=== PATIENT | female | born 1980 | race Caucasian/White ===

== ENCOUNTER 2020-08-12 10:16 | Outpatient (CLI) | payer OTHER, SELFPAY ==
[2020-08-12 12:23] LABS: Hematocrit 39.1 % (37.0-47.0); Hemoglobin 12.4 g/dL (12.0-15.0)
[2020-08-12 12:31] LABS: Glucose 1 Hour PP 50gm Dose 199 mg/dL
[2020-08-12 15:08] LABS: HIV 1/2 Ab P24 Ag Result Negative (Negative)
[2020-08-12] MEDS: RHO(D) IMMUNE GLOBULIN 300 MCG/2 ML SYRINGE IM (16:05)
[2020-08-13 10:35] LABS: Rapid Plasma Reagin Non-Reactive (NonReactive)
[2020-08-16 13:06] LABS: Lead, Blood <1 mcg/dL (<5)
[2020-08-19 10:53] LABS: Collection Sample Venous
== END 2020-08-12 10:17 | disposition home or self-care (01) ==
LOC: ANHLAB 10:26
PROVIDERS: PCP Family Medicine; Visit Provider Obstetrics & Gynecology
DX: O36.0130 Maternal care for anti-D [Rh] antibodies, third trimester, not applicable or unspecified (principal); Z3A.00 Weeks of gestation of pregnancy not specified; Z36.89 Encounter for other specified antenatal screening
CPT/HCPCS: 36415; 82947; 83655; 85014; 85018; 85461; 86592; 86703; 90384; 96372; G0432; J2790

== ENCOUNTER 2020-09-16 09:50 | Outpatient (RCR) | payer OTHER, SELFPAY ==
[2020-09-16 10:32] VITALS: BP 123/67; PULSE 72
== END 2020-10-14 08:14 | disposition home or self-care (01) ==
LOC: ANHOBOP 09:50
PROVIDERS: PCP Family Medicine; Visit Provider Obstetrics & Gynecology
DX: O24.419 Gestational diabetes mellitus in pregnancy, unspecified control (principal); Z3A.33 33 weeks gestation of pregnancy
CPT/HCPCS: 59025

== ENCOUNTER 2020-10-11 00:01 | Inpatient (IN) | payer OTHER, SELFPAY ==
--- NOTE | 2020-10-10 23:56 | LDADM ---
This patient, Laureen Medellin, was admitted to Labor/Delivery/Recovery 107 on 10/10/20 at 23:56. Plans for labor, pain management and were discussed with patient. Patient/family oriented to hospital policies and general routines including ID bracelet, bed and alarms, visiting hours, pain management, procedures, bathroom and other care routines, personal items, smoking policy, room service/diet and guest tray routines, security routines, and visiting hours. Patient/Family are encouraged to report perceived risks to care and to ask questions if they do not understand what they are told or what they should do. See OBIX for further documentation.
[2020-10-11] VITALS (42 sets, daily range): BP systolic 120–142; BP diastolic 62–87; PULSE 50–76; RESP 18–20; TEMP 36.1–37.1; BMI 39.2
[2020-10-11 00:49] LABS: Basophils Absolute Auto 0.1 K/mm3 (0.0-0.1); Basophils Percent Auto 0.4 % (0.2-1.2); Eosinophils Absolute Auto 0.1 K/mm3 (0-0.3); Eosinophils Percent Auto 0.5 % (0-4.4); Hematocrit 39.4 % (37.0-47.0); Immature Granulocyte Absolute 0.08 K/mm3 (0.00-0.031); Immature Granulocyte Percent A 0.6 % (0-0.5); Lymphocytes Absolute Auto 2.64 K/mm3 (0.9-3.2); Lymphocytes Percent Auto 20.5 % (18.3-44.2); Mean Corpuscular Hemoglobin 27.6 pg (26-34); Mean Corpuscular Volume 83.7 fl (80-100); Mean Platelet Volume 12.1 fl (7.4-10.4); Monocytes Absolute Auto 0.7 K/mm3 (0.1-0.6); Monocytes Percent Auto 5.4 % (2.6-8.5); Neutrophils Absolute Auto 9.3 K/mm3 (1.3-6.7); Neutrophils Percent Auto 72.6 % (45.5-73.1); Platelet Count Result 172 k/mm3 (150-375); Red Blood Count 4.71 M/mm3 (4.2-5.4); Red Cell Distribution Width 13.9 % (11.5-14.5); White Blood Count 12.9 K/mm3 (4.5-10.0)
[2020-10-11 00:58] LABS: Uric Acid 5.9 mg/dL (2.5-7.5)
[2020-10-11 01:02] LABS: Alanine Aminotransferase 12 U/L (4-35); Albumin Level 3.2 g/dL (3.5-5.1); Alkaline Phosphatase 152 U/L (38-126); Anion Gap 5 mmol/L (8-16); Aspartate Amino Transferase 18 U/L (14-36); Bilirubin,Total 0.1 mg/dL (0.2-1.3); Blood Urea Nitrogen 12 mg/dL (7-17); Calcium 9.1 mg/dL (8.4-10.2); Carbon Dioxide 22 mmol/L (22-30); Chloride 109 mmol/L (98-107); Estimated Glomerular Filt Rate > 60; Glucose 78 mg/dL (65-105); Potassium 3.9 mmol/L (3.4-5.0); Sodium 136 mmol/L (137-145)
[2020-10-11] MEDS: DINOPROSTONE 10 MG VAG INSERT VAGINAL (01:11)
--- NOTE | 2020-10-11 07:46 | WPDOBADMIT ---
Obstetrics - Admit Note Admission Note: record reviewed. No pertinent additions to the history and/or any subsequent changes in the physical findings that are not consistent with the expected course of the were found. Additions to the history and/or subsequent changes in the physical findings follow. Briefly 40yo G1 at 37 weeks with PIH, GDM, AMA. Cervix unfavorable. Cervidil in. Discussed POC. FHT category 1.
[2020-10-11 08:37] LABS: Glucose Point of Care 84 mg/dl (65-105)
[2020-10-11 09:27] LABS: Rapid Plasma Reagin Non-Reactive (NonReactive)
[2020-10-11 12:28] LABS: Glucose Point of Care 75 mg/dl (65-105)
[2020-10-11] MEDS: LACTATED RINGERS 1,000 ML 125 ML IV CONT ×2 (18:05→23:45)
[2020-10-11] MEDS: OXYTOCIN 30 UNITS/NS 500 ML 30 UNITS/500 ML BAG 6 UNITS IV CONT (18:06)
[2020-10-11 18:11] LABS: Glucose Point of Care 91 mg/dl (65-105)
--- NOTE | 2020-10-11 20:40 | WPDANESEPPF ---
Anes - Initial Pre Proc Eval Procedure: labor epidural Date/Time: 10/11/20 20:40 Surgeon: Esperanza Quinones MD Pre Op Diagnosis: labor pain Pre Op Diagnosis: IOL Patient Data Age: 40 Gender: F Height: 1.68 m Weight: 110.4 kg Last Vital Signs Temp 36.6 C 10/11/20 17:53 Pulse 62 10/11/20 20:31 Resp 18 10/11/20 17:53 BP 132/78 10/11/20 20:31 Allergies Allergy/AdvReac Type Severity Reaction Status Date / Time amoxicillin Allergy Intermediate Rash Verified 08/12/20 16:02 Home Medications Medication Instructions Recorded Confirmed Type PNV cmb#95-ferrous fumarate-FA 1 tablet PO DAILY 09/16/20 10/11/20 History [] Laboratory Tests 10/11/20 10/11/20 10/11/20 00:42 00:42 00:42 WBC 12.9 K/mm3 H K/mm3 (4.5-10.0) RBC 4.71 M/mm3 M/mm3 (4.2-5.4) Hgb 13.0 g/dL g/dL (12.0-15.0) Hct 39.4 % % (37.0-47.0) MCV 83.7 fl fl (80-100) MCH 27.6 pg pg (26-34) MCHC 33.0 g/dl g/dl (32-36) RDW 13.9 % % (11.5-14.5) Plt Count 172 k/mm3 k/mm3 (150-375) MPV 12.1 fl H fl (7.4-10.4) Immature Gran % (Auto) 0.6 % H % (0-0.5) Neut % (Auto) 72.6 % % (45.5-73.1) Lymph % (Auto) 20.5 % % (18.3-44.2) Walker % (Auto) 5.4 % % (2.6-8.5) Eos % (Auto) 0.5 % % (0-4.4) Baso % (Auto) 0.4 % % (0.2-1.2) Lymph # (Auto) 2.64 K/mm3 K/mm3 (0.9-3.2) Walker # (Auto) 0.7 K/mm3 H K/mm3 (0.1-0.6) Eos # (Auto) 0.1 K/mm3 K/mm3 (0-0.3) Baso # (Auto) 0.1 K/mm3 K/mm3 (0.0-0.1) Abs Immat Gran (auto) 0.08 K/mm3 H K/mm3 (0.00-0.031) Absolute Neuts (auto) 9.3 K/mm3 H K/mm3 (1.3-6.7) Absolute Nucleated RBC 0.0 K/mm3 K/mm3 (0.0-0.012) Nucleated RBC % 0.0 % % (0.0-0.2) Sodium Potassium Chloride Carbon Dioxide Anion Gap BUN Creatinine Estim Creat Clear Calc Estimated GFR Glucose POC Capillary Glucose Uric Acid 5.9 mg/dL mg/dL (2.5-7.5) Calcium Total Bilirubin AST ALT Alkaline Phosphatase Total Protein Albumin RPR Non-reactive (NonReactive) Blood Type Antibody Screen Antibody Identification Antigen Identification ABDIAZIZ, IgG Interpret ABDIAZIZ, Poly Interpret ABDIAZIZ, Complement Interp 10/11/20 10/11/20 10/11/20 00:42 00:42 08:34 WBC RBC Hgb Hct MCV MCH MCHC RDW Plt Count MPV Immature Gran % (Auto) Neut % (Auto) Lymph % (Auto) Walker % (Auto) Eos % (Auto) Baso % (Auto) Lymph # (Auto) Walker # (Auto) Eos # (Auto) Baso # (Auto) Abs Immat Gran (auto) Absolute Neuts (auto) Absolute Nucleated RBC Nucleated RBC % Sodium 136 mmol/L L mmol/L (137-145) Potassium 3.9 mmol/L mmol/L (3.4-5.0) Chloride 109 mmol/L H mmol/L (98-107) Carbon Dioxide 22 mmol/L mmol/L (22-30) Anion Gap 5 mmol/L L mmol/L (8-16) BUN 12 mg/dL mg/dL (7-17) Creatinine 0.60 mg/dL L mg/dL (0.7-1.0) Estim Creat Clear Calc Not Reportable Estimated GFR > 60 (59 - ) Glucose 78 mg/dL mg/dL (65-105) POC Capillary Glucose 84 mg/dl mg/dl (65-105) Uric Acid Calcium 9.1 mg/dL mg/dL (8.4-10.2) Total Bilirubin 0.1 mg/dL L mg/dL (0.2-1.3) AST 18 U/L
[2020-10-11 22:34] LABS: Glucose Point of Care 76 mg/dl (65-105)
[2020-10-12] VITALS (130 sets, daily range): BP systolic 84–148; BP diastolic 39–87; PULSE 46–112; RESP 12–19; TEMP 36.1–36.6; O2SAT 86–100
[2020-10-12 02:28] LABS: Glucose Point of Care 77 mg/dl (65-105)
[2020-10-12] MEDS: LACTATED RINGERS 1,000 ML 125 ML IV CONT ×3 (06:11→15:48)
[2020-10-12 06:24] LABS: Glucose Point of Care 83 mg/dl (65-105)
[2020-10-12] MEDS: ONDANSETRON INJ 4 MG/2 ML VIAL IV PUSH ×3 (07:30→20:40)
[2020-10-12] MEDS: fentaNYL CITRATE INJ (*CRX) 100 MCG/2 ML VIAL 50 MCG IV PUSH ×2 (07:41→10:38)
[2020-10-12 10:34] LABS: Glucose Point of Care 86 mg/dl (65-105)
[2020-10-12 14:00] LABS: Glucose Point of Care 81 mg/dl (65-105)
--- NOTE | 2020-10-12 15:53 | WPDHPUPDATE1 ---
History and Physical Update Update Date/Time: 10/12/20 15:53 History and Physical has been reviewed, including an updated exam of the patient. SHe is 3-4 cm and contractions very inadequate. Unable to increase pitocin to get contractions adequate, as baby has had late decelerations several times and one prolonged decel to 80s. Given that she is remote from delivery, I recommend we proceed with section. Risks, benefits, and alternatives have been discussed and questions answered. Patient agrees to proceed with procedure.
--- NOTE | 2020-10-12 17:13 | PM.OBPRVD ---
OB - Delivery Note Procedure Delivery date: 10/12/20 Procedure: Procedures Operation Date: 10/12/20 16:00 <No data on this case meets the specified criteria> Primary low transverse section events: Gestational Diabetes and Induced HTN Intrapartal events: Prolonged Latent Phase, Intolerance and Failure to Progress in Labor Induction method: AROM, per pitocin protocol and per cervidil protocol Route of delivery: Specimen: No Quantitative Blood Loss (ml): 740 Anesthesia type: Epidural Disposition: floor Complications: none Narrative: The patient was taken to the OR and received spinal anesthesia. She was placed in dorsal supine position with left lateral tilt. SCDs and avery were placed. She was prepped and draped in the normal sterile fashion. A Pfannensteil skin incision was made and carried through to the underlying layer of fascia. The fascia was incised in the midline and then extended laterally using Valencia scissors. The muscles were in the midline and the peritoneum was entered bluntly. The peritoneal incision was extended inferiorly and superiorly with care to avoid the bladder. The bladder blade was then inserted, the vesicouterine peritoneum was grasped, incised with Metzenbaum scissors, and a bladder flap created. The bladder blade was reinserted. A low transverse uterine incision was made with a scalpel and extended bluntly. AROM was performed and fluid was noted to be clear. The head was delivered, followed by the remainder of the baby. The baby's oropharynx was suctioned. After 30 seconds, the cord was clamped and cut and the was handed off. Cord blood was obtained and the placenta was then removed manually. The uterus was exteriorized. A moist lap sponge was used to curette the endometrium. The uterine incision was then closed with one layer of 0-Vicryl in a running, locking fashion. Good hemostasis was noted. The posterior cul de sac was irrigated with normal saline and cleared of all clot and debris. The uterus was returned to the abdomen. Both lateral gutters were then irrigated. The rectus muscles were inspected and found to be hemostatic. The fascia was reapproximated using 0-Vicryl in running fashion. The subcutaneous tissue was irrigated with normal saline and made hemostatic with Bovie electrocautery. The subcutaneous tissue was reapproximated with a layer of running 2-0 plain gut. The skin was then closed with absorbable sutures and skin glue. The uterus was evacuated. She received hemabate, extra pitocin, and cytotec for uterine atony. The patient tolerated the procedure very well. All counts were correct. She was taken to the recovery room in good condition. Baby Date of : 10/12/20 Time of : 16:29 Weeks of gestation at delivery: 37 gender: Male Weight (pounds): 6 Weight (ounces): 8 presentation: vertex Placenta delivery description: Manual Removal cord vessel description: 3 Vessels, Nuchal Cord and Delayed Cord Clamping score one minute: 7 score five minutes: 8
[2020-10-12] MEDS: OXYTOCIN 30 UNITS/NS 500 ML 30 UNITS/500 ML BAG 125 UNITS IV CONT (19:39)
[2020-10-12] MEDS: KETOROLAC 30 MG/ML VIAL (*BKC) IV PUSH (20:40)
[2020-10-12] MEDS: diphenhydrAMINE HCl INJ 50 MG/ML VIAL 25 MG IV PUSH (20:40)
[2020-10-12] MEDS: DEXTROSE 5%/0.45% SOD CHL 1,000 ML 125 ML IV CONT (23:10)
[2020-10-13 04:45] VITALS: BP 130/64; PULSE 76; RESP 15; TEMP 36.6; O2SAT 99
[2020-10-13] MEDS: KETOROLAC 30 MG/ML VIAL (*BKC) IV PUSH (05:07)
[2020-10-13] MEDS: HYDROcodone/acetaminophen (*CRX) 5-325 MG TABLET 1 TAB PO ×4 (05:08→21:21)
[2020-10-13 05:54] LABS: Basophils Percent Auto 0.2 % (0.2-1.2); Hematocrit 34.9 % (37.0-47.0); Hemoglobin 11.4 g/dL (12.0-15.0); Immature Granulocyte Absolute 0.09 K/mm3 (0.00-0.031); Immature Granulocyte Percent A 0.7 % (0-0.5); Immature Platelet Fraction Pct 11.5 % (0.9-11.2); Lymphocytes Percent Auto 11.3 % (18.3-44.2); Mean Corpuscular HGB Conc 32.7 g/dl (32-36); Mean Corpuscular Hemoglobin 27.9 pg (26-34); Mean Corpuscular Volume 85.3 fl (80-100); Mean Platelet Volume 12.8 fl (7.4-10.4); Monocytes Absolute Auto 0.7 K/mm3 (0.1-0.6); Monocytes Percent Auto 5.4 % (2.6-8.5); Neutrophils Percent Auto 82.4 % (45.5-73.1); Platelet Count Result 149 k/mm3 (150-375); Red Blood Count 4.09 M/mm3 (4.2-5.4); Red Cell Distribution Width 13.9 % (11.5-14.5); White Blood Count 13.3 K/mm3 (4.5-10.0)
[2020-10-13] MEDS: POLYSACCHARIDE IRON COMPLEX 150 MG CAPSULE PO (08:59)
[2020-10-13] MEDS: MULTIVIT/MIN/PREN/FOL AC/IRON TABLET 1 TAB PO (08:59)
[2020-10-13] MEDS: DOCUSATE SODIUM 100 MG CAPSULE PO ×2 (08:59→16:42)
[2020-10-13 09:00] VITALS: BP 126/74; PULSE 60; RESP 18; TEMP 36.6
--- NOTE | 2020-10-13 09:18 | WPDANLDPN2 ---
Anes-Prog Note L&D Date/Time: 10/13/20 09:18 Comfortable throughout: labor and delivery Neuraxial method: epidural Epidural/Spinal procedure site: clean & non-tender Neuro status: Neuro function grossly intact. Cardiovascular status: normal Respiratory status: normal Airway patency: baseline Mental status: baseline Post-Op hydration status: normal Vital Signs: Last Vital Signs Temp 36.6 C 10/13/20 04:45 Pulse 76 10/13/20 04:45 Resp 15 10/13/20 04:45 BP 130/64 10/13/20 04:45 Pulse Ox 99 10/13/20 04:45 Pain score (VAS): 0/10 I/O: Intake & Output 10/12/20 10/13/20 10/13/20 23:59 07:59 15:59 Intake Total 700 650 Output Total 548 1200 Balance 152 -550 Post-procedural complaints: none Patient feedback: Patient satisfied with anesthetic care.
[2020-10-13] MEDS: IBUPROFEN 600 MG TABLET PO ×2 (10:34→16:42)
--- NOTE | 2020-10-13 11:09 | PM.OBPNVD ---
OB - PN: Subj Subjective Date/time seen: 10/13/20 11:09 Patient comments: no complaints baby status: NICU [place] feeding status: pumping and storing Narrative: POD 1 from primary CS. Doing well. Normal lochia. Eating, ambulating, avery out. OB - PN: Obj Data Labs CBC & Chem 7: 10/13/20 05:00 10/11/20 00:42 Labs: Laboratory Results - last 24 hr 10/12/20 10/13/20 10/13/20 13:53 05:00 05:00 WBC 13.3 H RBC 4.09 L Hgb 11.4 L Hct 34.9 L MCV 85.3 MCH 27.9 MCHC 32.7 RDW 13.9 Plt Count 149 L MPV 12.8 H Immature Gran % (Auto) 0.7 H Neut % (Auto) 82.4 H Lymph % (Auto) 11.3 L [place] % (Auto) 5.4 Eos % (Auto) 0.0 Baso % (Auto) 0.2 Lymph # (Auto) 1.50 [place] # (Auto) 0.7 H Eos # (Auto) 0.0 Baso # (Auto) 0.0 Abs Immat Gran (auto) 0.09 H Absolute Neuts (auto) 11.0 H Absolute Nucleated RBC 0.0 Nucleated RBC % 0.0 % Immature Plt Fraction 11.5 H POC Capillary Glucose 81 Blood Type O Negative Antibody Screen TNP Screen Negative Baby's Blood Type O pos Baby's ABDIAZIZ Negative Doses of RhIg Required 1 OB - PN A/P Plan day: 1 Plan: routine care Comments: Routine post op care. circ done after consented. Time Spent With Patient Time: Total time spent is greater than 50% in coordination of care (as documented) at patient's floor/unit and/or counseling patient: Exam Narrative: Exam Narrative: NAD abdomen soft, appropriately tender, incision bandaged Extremities nontender with 1+ edema UOP 1200cc/10 hours
[2020-10-13 13:00] VITALS: BP 122/72; PULSE 71; RESP 18; TEMP 36.9
[2020-10-13] MEDS: RHO(D) IMMUNE GLOBULIN 300 MCG/2 ML SYRINGE IM (16:38)
[2020-10-13 19:55] VITALS: BP 133/63; PULSE 60; RESP 16; TEMP 36.8; O2SAT 100
[2020-10-13 23:00] VITALS: BP 127/67; PULSE 78; RESP 16; TEMP 37; O2SAT 100
[2020-10-14] MEDS: HYDROcodone/acetaminophen (*CRX) 5-325 MG TABLET 1 TAB PO ×8 (01:50→23:54)
[2020-10-14] MEDS: IBUPROFEN 600 MG TABLET PO ×4 (01:50→20:42)
[2020-10-14 03:25] VITALS: BP 123/64; PULSE 68; RESP 16; TEMP 36.9; O2SAT 97
[2020-10-14 07:35] VITALS: BP 134/82; PULSE 74; RESP 16; TEMP 37.1; O2SAT 98
--- NOTE | 2020-10-14 07:52 | PM.OBPNVD ---
OB - PN: Subj Subjective Date/time seen: 10/14/20 07:52 Patient comments: no complaints, incisional pain and tolerating diet [place] baby status: doing well and nursing well [place] feeding status: exclusively breast feeding OB - PN: Obj Data Labs CBC & Chem 7: 10/13/20 05:00 10/11/20 00:42 Labs: Laboratory Results - last 24 hr 10/13/20 05:00 Blood Type O Negative Antibody Screen TNP Screen Negative Baby's Blood Type O pos Baby's ABDIAZIZ Negative Doses of RhIg Required 1 OB - PN A/P Plan day: 2 Plan: routine care Comments: Home POD 3 or 4 DC instructions discussed Time Spent With Patient Time: Total time spent is greater than 50% in coordination of care (as documented) at patient's floor/unit and/or counseling patient: Exam Narrative: Exam Narrative: NAD abdomen soft, appropriately tender, incision CDI Extremities nontender with 1+ edema
[2020-10-14] MEDS: DOCUSATE SODIUM 100 MG CAPSULE PO ×2 (08:02→17:42)
[2020-10-14] MEDS: MULTIVIT/MIN/PREN/FOL AC/IRON TABLET 1 TAB PO (08:02)
[2020-10-14 08:30] VITALS: PULSE 68; RESP 16; O2SAT 97
[2020-10-14 11:58] VITALS: BP 133/84; PULSE 68; RESP 16; TEMP 37.1; O2SAT 99
[2020-10-14] MEDS: SIMETHICONE 80 MG TAB.CHEW PO (14:04)
[2020-10-14 20:30] VITALS: BP 145/83; PULSE 70; RESP 16; TEMP 36.6; O2SAT 99
[2020-10-14 23:55] VITALS: BP 150/85; PULSE 60; RESP 18; TEMP 36.1
[2020-10-15] VITALS (11 sets, daily range): BP systolic 122–151; BP diastolic 71–85; PULSE 60–78; RESP 14–20; TEMP 36.2–37; O2SAT 99
[2020-10-15] MEDS: HYDROcodone/acetaminophen (*CRX) 5-325 MG TABLET 1 TAB PO ×2 (02:51→05:51)
[2020-10-15] MEDS: IBUPROFEN 600 MG TABLET PO ×4 (02:52→21:17)
[2020-10-15] MEDS: SIMETHICONE 80 MG TAB.CHEW PO ×4 (03:10→17:53)
--- NOTE | 2020-10-15 07:48 | P.PNOB_ITS ---
OB - PN: Subj Subjective Date/time seen: 10/15/20 07:48 Patient comments: pain well controlled, tolerating diet and flatus present baby status: bottle feeding well [place] feeding status: pumping and bottle feeding Narrative: Nausea overnight and today. Encouraged scheduled scheduled simethicone, ambulation in halls, suppository. zofran prn, but caution re constipation. BPs mildly elevated. Denies HALL/EP/BV OB - PN: Obj Data Labs CBC & Chem 7: 10/13/20 05:00 10/11/20 00:42 OB - PN A/P Plan day: 3 Comments: BPs 133-150/77-85, will start labetalol 100 BID PIH labs ambulate, simethicone, suppository. Hopefully home tomorrow. Time Spent With Patient Time: Total time spent is greater than 50% in coordination of care (as documented) at patient's floor/unit and/or counseling patient: Exam Narrative: Exam Narrative: NAD abdomen soft, appropriately tender, incision CDI Extremities nontender with 1+ edema
[2020-10-15] MEDS: BISACODYL 10 MG SUPPOSITORY RECTAL (09:10)
[2020-10-15] MEDS: LABETALOL HCL 100 MG TABLET PO ×2 (09:12→21:21)
[2020-10-15] MEDS: DOCUSATE SODIUM 100 MG CAPSULE PO ×2 (09:13→17:53)
[2020-10-15] MEDS: MULTIVIT/MIN/PREN/FOL AC/IRON TABLET 1 TAB PO (09:13)
[2020-10-15] MEDS: HYDROcodone/acetaminophen (*CRX) 10-325 MG TABLET 1 TAB PO ×2 (15:01→21:17)
[2020-10-16 04:30] VITALS: BP 139/75; PULSE 72; RESP 18
[2020-10-16] MEDS: HYDROcodone/acetaminophen (*CRX) 10-325 MG TABLET 1 TAB PO ×2 (04:39→10:50)
[2020-10-16] MEDS: IBUPROFEN 600 MG TABLET PO ×2 (04:39→10:49)
[2020-10-16 07:50] VITALS: BP 147/80; PULSE 74; RESP 18; TEMP 37; O2SAT 100
--- NOTE | 2020-10-16 07:58 | PM.OBPNVD ---
OB - PN: Subj Subjective Date/time seen: 10/16/20 07:58 Patient comments: no complaints and pain well controlled baby status: doing well [place] feeding status: breast and bottle feeding Narrative: Bps on labetalol 120s-130s/70s/80s Denies HALL/BV/EP OB - PN: Obj Data Labs CBC & Chem 7: 10/13/20 05:00 10/11/20 00:42 Labs: Laboratory Results - last 24 hr 10/13/20 05:00 Blood Type O Negative Antibody Screen TNP Screen Negative Baby's Blood Type O pos Baby's ABDIAZIZ Negative Doses of RhIg Required 1 OB - PN A/P Plan day: 4 Plan: routine care and discharge home Comments: FU BP check hospital tomorrow and with me in 5 days Time Spent With Patient Time: Total time spent is greater than 50% in coordination of care (as documented) at patient's floor/unit and/or counseling patient: Time with patient: less than 15 minutes Exam Narrative: Exam Narrative: NAD abdomen soft, appropriately tender, incision CDI Extremities nontender with 1+ edema
--- NOTE | 2020-10-16 08:05 | PM.OBDSVD ---
DS: Admitting Diagnosis Admitting Diagnosis Admitting Diagnosis: term , PIH DS: Discharge Diagnosis Discharge Diagnosis (1) delivery delivered: Code(s): O82 - Encounter for delivery without indication Status: Acute OB - DS: Summary Hospital Course Hospital Course: Pt was admitted for induction due to PIH. At 3-4cm we were unable to increase pitocin due to intolerance of labor and CS was performed. course was uncomplicated except for BPs increasing on day 3. Labetalol was started and they improved. She was DCed home on POD4. OB Procedures : NST, PIH Mgmt and Ultrasound OB Procedures Intrapartum: OB Procedures: : None Peripartum Data Infant Delivery Method: Section Procedures: Procedures Operation Date: 10/12/20 16:00 Actual Procedure Side Surgeon p Section Esperanza Quinones MD Status at Discharge Functional status at discharge: independent ambulation Time Spent with Patient Time attestation: Total time spent providing and/or coordinating discharge services: Exam Narrative: Exam Narrative: NAD abdomen soft, appropriately tender, incision CDI DS: Data Data Completed and Pending Pending studies at discharge: Pending at discharge 10/12/20 16:29 Surgical [PTH] Routine Labs on day of discharge: Labs from last 24 hours 10/13/20 05:00 Blood Type O Negative Antibody Screen TNP Screen Negative Baby's Blood Type O pos Baby's ABDIAZIZ Negative Doses of RhIg Required 1 Discharge Plan Discharge Attending physician on discharge: Esperanza Quinones Discharging Clinician: Esperanza Quinones Anticipated Discharge Date/Time: 10/16/20 12:00 Patient Disposition: Home, Self-Care Activity: may shower, no straining, may drive after 2 weeks and pelvic rest Diet: as tolerated Patient Instructions: Antibiotic Form Stand Alone Forms: General Discharge Information Follow-up/Referrals: Esperanza Quinones MD [Physician] - 1 Week Discharge Medications: New hydrocodone-acetaminophen 5-325 mg Tablet 1 tablet PO Q4-5H PRN (Reason: Moderate Pain (4-6)) Qty: 30 RF: 0 ibuprofen 600 mg Tablet 600 mg PO Q6H PRN (Reason: Cramping) Qty: 60 RF: 1 labetalol 100 mg Tablet 100 mg PO Q12HR Qty: 60 RF: 1 Continued PNV cmb#95-ferrous fumarate-FA [] 28 mg iron- 800 mcg Tablet 1 tablet PO DAILY RF: 0 Date of admission: 10/11/20 00:01 Primary Care Provider: Augusta Mayberry Admitting Provider: Esperanza Quinones Attending physician on admission: Esperanza Quinones Condition: Stable
[2020-10-16 09:41] VITALS: PULSE 74
[2020-10-16] MEDS: MULTIVIT/MIN/PREN/FOL AC/IRON TABLET 1 TAB PO (09:41)
[2020-10-16] MEDS: DOCUSATE SODIUM 100 MG CAPSULE PO (09:41)
[2020-10-16] MEDS: LABETALOL HCL 100 MG TABLET PO (09:41)
[2020-10-17 09:17] VITALS: BP 138/66; PULSE 63; RESP 20; TEMP 37.2; O2SAT 100
--- NOTE | 2020-10-18 13:07 | PM.IMHP ---
H&P: HPI History of Present Illness Date/Time: 10/18/20 13:07 Chief Complaint: IOL Narrative: IOL for PIH. SHe is 3-4 cm and contractions very inadequate. Unable to increase pitocin to get contractions adequate, as baby has had late decelerations several times and one prolonged decel to 80s. Given that she is remote from delivery, I recommend we proceed with section. Review of Systems Review of Systems: All systems reviewed & are unremarkable except as noted in HPI and below PMFSH Past Medical History Medical History (Updated 10/16/20 @ 09:06 by Augusta Mayberry MD) GDM (gestational diabetes mellitus) PIH ( induced hypertension) Family History Family History Other No pertinent family history Social History Social History Smoking status: Never smoker Substance use: never Gender identity (if verbalized by the patient): Female Spiritual care concerns: No Meds Home Medications and Allergies Home Medications Medication Instructions Recorded Confirmed Type PNV cmb#95-ferrous fumarate-FA 1 tablet PO DAILY 09/16/20 10/11/20 History [] hydrocodone-acetaminophen 1 tablet PO Q4-5H PRN #30 tablet 10/16/20 Rx ibuprofen 600 mg PO Q6H PRN #60 tablet 10/16/20 Rx labetalol 100 mg PO Q12HR #60 tablet 10/16/20 Rx Allergies Allergy/AdvReac Type Severity Reaction Status Date / Time amoxicillin Allergy Intermediate Rash Verified 08/12/20 16:02 Exam Const: General: no acute distress Resp: Effort & Inspection: normal respiratory effort Auscultation: clear to auscultation bilaterally Cardio: Rate: regular rate Rhythm: regular rhythm GI: GI Palp: Yes Soft to palpation Extrem: General: normal to inspection Assessment and Plan Additional Plan Plan primary CS Discussed RBA, pt consented, all questions answered. will proceed.
== END 2020-10-16 12:40 | disposition home or self-care (01) | DRG 788 ==
LOC: ANHLDR 04:09 → ANHOB2 10-12 20:14
PROVIDERS: Admitting Provider Obstetrics & Gynecology; PCP Family Medicine; Visit Provider Obstetrics & Gynecology
PROC: 10D00Z1 Extraction of Products of Conception, Low, Open Approach (ICD-10-PCS; CPT 59514; principal; 2020-10-12 16:00)
DX: O24.429 Gestational diabetes mellitus in childbirth, unspecified control (principal); Z37.0 Single live birth; Z3A.37 37 weeks gestation of pregnancy; O13.4 Gestational [pregnancy-induced] hypertension without significant proteinuria, complicating childbirth; O69.81X0 Labor and delivery complicated by cord around neck, without compression, not applicable or unspecified; O63.0 Prolonged first stage (of labor); O99.214 Obesity complicating childbirth; E66.9 Obesity, unspecified; O36.8330 Maternal care for abnormalities of the fetal heart rate or rhythm, third trimester, not applicable or unspecified
CPT/HCPCS: 36415; 80053; 82948; 84550; 85025; 85055; 85461; 86592; 86850; 86880; 86900; 86901; 86902; 88307; 90384; A9270; J0131; J1200; J1885; J2274; J2405; J2590; J2790; J2795; J3010; J7120

== ENCOUNTER → 2021-01-09 16:47 | Outpatient (CLI) | payer OTHER, SELFPAY ==
--- NOTE | ~2021-01-09 | XR_ITS ---
XR hip LT 2V w AP pelvis 01/09/2021 17:04 Indication: Left hip pain Procedure: AP pelvis and 2 views left hip Comparison: No prior studies for comparison. Findings: No fracture, subluxation or dislocation. Pelvic rings are intact. There is mild osteitis pu bis. No significant joint space narrowing. There is anatomic alignment. No significant soft tissue ab normality. Impression: 1: No significant bone or joint abnormality. Reviewed, dictated and finalized at location A. Impression: 1: No significant bone or joint abnormality.
== END ==
PROVIDERS: Visit Provider Physician Assistant
DX: M25.552 Pain in left hip (principal); M86.9 Osteomyelitis, unspecified
CPT/HCPCS: 73502

== ENCOUNTER 2021-07-28 08:25 | Emergency (ER) | payer OTHER, SELFPAY ==
--- NOTE | ~2021-07-28 | XR_ITS ---
EXAMINATION: XR hand RT min 3V EXAM DATE: 07/28/2021 08:43 INDICATION: KNI. Pain X 3 Days. Attn: 1st Mp Jt. TECHNIQUE: Right hand frontal, lateral and oblique projections obtained and reviewed. There is no pr ior study for comparison. FINDINGS: Right metacarpal bones are unremarkable. There are no bony erosions identified. There are no acute fractures or dislocations identified. There is no subcutaneous gas. The soft tissue is un remarkable. There are no radiopaque foreign bodies. The joint spaces are uniform. IMPRESSION: Unremarkable XR hand RT min 3V exam. Reviewed, dictated and finalized at location B.
[2021-07-28 08:30] VITALS: BP 143/93; PULSE 74; RESP 16; TEMP 36.4; O2SAT 100
--- NOTE | 2021-07-28 08:30 | ED.UPPEXIN ---
HPI - Extremity Injury (Upper) General Chief Complaint: Extremity Injury, Upper Stated Complaint: right hand injury Time Seen by Provider: 07/28/21 08:30 Source: patient and RN notes reviewed History of Present Illness HPI narrative: Patient is a 41-year-old female who presents the urgent care with complaints of right hand pain. Patient denies of any injury. Denies of any known cause. 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 Patient cannot pinpoint any incident from where it started. Patient has been taking ibuprofen for the pain. No other acute complaints. No acute distress noted. Patient aware of the plan of care. Some parts of this dictation were generated by voice recognition software and may contain typographical and/or grammatical inaccuracies. Related Data Home Medications Medication Instructions Recorded Confirmed drospirenone-ethinyl estradiol 1 tablet PO DAILY 07/28/21 07/28/21 Allergies Allergy/AdvReac Type Severity Reaction Status Date / Time amoxicillin Allergy Intermediate Rash Verified 07/28/21 08:37 Penicillins Allergy Unknown Skin Verified 07/28/21 08:37 Reaction Review of Systems Review of Systems: CONSTITUTIONAL: Denies fever, chills, or sweats. EYES: Denies visual changes, redness, or discharge. ENT: Denies rhinorrhea, congestion, sore throat, or otalgia. CARDIOVASCULAR: Denies chest pain, palpitations, or edema. RESPIRATORY: Denies cough or dyspnea. GASTROINTESTINAL: Denies abdominal pain, nausea, vomiting, or diarrhea. GENITOURINARY: Denies dysuria or hematuria. SKIN: Denies rash or itching. MUSCULOSKELETAL: Reports of right hand pain NEUROLOGIC: Denies headache, numbness, or weakness. All other systems reviewed are negative, except as documented in HPI. REPLACED BY [facility] Past Medical History Medical History GDM (gestational diabetes mellitus) PIH ( induced hypertension) Family History Family History Other No pertinent family history Social History Social History (System 07/11/21 @ 10:55 by Alize Ventura) Substance use: never Gender identity (if verbalized by the patient): Female Spiritual care concerns: No Comments At the time of my signature, I reviewed and agree with the nursing past medical, surgical, social, and family history. There is no relevant family history pertinent to the patient complaint. Exam Narrative: GENERAL: This is a well-nourished, well-developed patient, in no apparent distress. HEAD: normocephalic, atraumatic. EYES: PERRL. Sclera clear/white. Vision is grossly intact. EARS: External ears normal NOSE: External nose normal with no obvious nasal discharge, nares without redness, no rhinorrhea. THROAT: Mucous membranes moist NECK: Neck supple CARDIOVASCULAR: Regular rate and rhythm without murmurs, gallops, or rubs. RESPIRATORY: Clear to auscultation. Breath sounds equal bilaterally. No wheezes, rales, or rhonchi. SKIN: warm, intact with no suspicious lesions or rash, good texture and turgor. NEURO: awake, alert, and oriented to person, place and time. There were no obvious focal neurologic abnormalities. EXTREMITIES: No obvious edema/erythema/ecchymosis noted to the right hand. Mild to moderate tenderness to the right thenar eminence with exacerbated pain on movement of the right thumb. Positive strong right radial pulse with capillary refill less than 2 seconds. Course Course Level of Care: Express Care Visit Vital Signs Vital signs: Vital Signs Temperature 97.6 F 07/28/21 08:30 Pulse Rate 74 07/28/21 08:30 Respiratory Rate 16 07/28/21 08:30 Blood Pressure 143/93 H 07/28/21 08:30 Pulse Oximetry 100 07/28/21 08:30 Temperature 97.6 F 07/28/21 08:30 Pulse Rate 74 07/28/21 08:30 Respi
== END 2021-07-28 09:05 | disposition home or self-care (01) ==
PROVIDERS: Emergency Provider Nurse Practitioner Family; PCP Family Medicine
DX: M77.8 Other enthesopathies, not elsewhere classified (principal)
CPT/HCPCS: 73130; 99213; G0463

== ENCOUNTER 2021-09-12 16:18 | Outpatient (CLI) | payer OTHER, SELFPAY ==
--- NOTE | ~2021-09-12 | CT_ITS ---
EXAMINATION: CT abdomen pelvis wo con DATE: 09/12/2021 16:48 INDICATION: Abdominal pain TECHNIQUE: Computed tomography (CT) of the abdomen and pelvis was performed without intravenous contr ast. Automated exposure control and iterative reconstruction technique were employed. The dose-length product was 1279.58 mGy-cm. COMPARISON: None FINDINGS: Lung bases are clear. Heart size is normal. No pericardial or pleural effusion. Diffuse hepatic steat osis with focal sparing along the gallbladder fossa. There are few calcified gallstones within the de compressed gallbladder with no pericholecystic inflammation presenting to suggest acute cholecystitis . Spleen, pancreas, bilateral adrenal glands and kidneys are normal. Bladder is normal. Anteverted ut erus and bilateral adnexa are unremarkable. Bowels including the appendix are normal. No free intrape ritoneal gas or fluid. No pathologically enlarged abdominal or pelvic lymphadenopathy. L5 spondylolys is with bilateral pars interarticularis defects, 10 mm anterolisthesis on S1 and severe associated di sc height loss at L5-S1 with remodeling of the posterior aspect of the L5 vertebral body. This result s in 30% posterior L5 vertebral body height loss. Severe bilateral neural foraminal stenosis at this level. Bones are otherwise unremarkable. IMPRESSION: 1. Normal appendix. No acute intra-abdominal/pelvic process. 2. L5 spondylolysis with grade 2 anterolisthesis on S1 and severe lumbosacral spondylosis. Reviewed, dictated and finalized at location B. IMPRESSION: 1. Normal appendix. No acute intra-abdominal/pelvic process. 2. L5 spondylolysis with grade 2 anterolisthesis on S1 and severe lumbosacral s pondylosis.
== END 2021-09-12 16:19 | disposition home or self-care (01) ==
LOC: ANHIMG 16:23
PROVIDERS: PCP Family Medicine; Visit Provider Physician Assistant
DX: R10.31 Right lower quadrant pain (principal); M47.817 Spondylosis without myelopathy or radiculopathy, lumbosacral region
CPT/HCPCS: 74176

== ENCOUNTER 2022-05-27 16:16 | Outpatient (CLI) | payer OTHER, SELFPAY ==
[2022-05-27 17:10] LABS: Hemoglobin 12.5 g/dL (12.0-15.0)
[2022-05-27 18:09] LABS: HIV 1/2 Ab P24 Ag Result Negative (Negative)
[2022-05-27] MEDS: RHO(D) IMMUNE GLOBULIN 300 MCG/2 ML SYRINGE IM (19:10)
== END 2022-05-27 16:17 | disposition home or self-care (01) ==
LOC: ANHLAB 16:18
PROVIDERS: PCP Family Medicine; Visit Provider Advanced Practice Midwife
DX: Z36.89 Encounter for other specified antenatal screening (principal); O36.0130 Maternal care for anti-D [Rh] antibodies, third trimester, not applicable or unspecified; Z3A.00 Weeks of gestation of pregnancy not specified
CPT/HCPCS: 36415; 85014; 85018; 85461; 86703; 86850; 86900; 86901; 90384; G0432; J2790

== ENCOUNTER 2022-08-10 17:16 | Outpatient (CLI) | payer OTHER, SELFPAY ==
[2022-08-10 17:32] LABS: Hematocrit 42.4 % (37.0-47.0); Hemoglobin 13.7 g/dL (12.0-15.0); Mean Corpuscular HGB Conc 32.3 g/dl (32-36); Mean Corpuscular Hemoglobin 27.2 pg (26-34); Mean Corpuscular Volume 84.1 fl (80-100); Mean Platelet Volume 11.4 fl (7.4-10.4); Platelet Count Result 208 k/mm3 (150-375); Red Blood Count 5.04 M/mm3 (4.2-5.4); Red Cell Distribution Width 15.8 % (11.5-14.5)
[2022-08-11 08:32] LABS: Rapid Plasma Reagin Non-Reactive (NonReactive)
== END 2022-08-10 17:17 | disposition home or self-care (01) ==
PROVIDERS: PCP Family Medicine; Visit Provider Obstetrics & Gynecology
DX: Z01.812 Encounter for preprocedural laboratory examination (principal)
CPT/HCPCS: 36415; 85027; 86592; 86850; 86900; 86901

== ENCOUNTER 2022-08-12 09:56 | Inpatient (IN) | payer OTHER, SELFPAY ==
[2022-08-12] VITALS (43 sets, daily range): BP systolic 115–148; BP diastolic 63–106; PULSE 47–81; RESP 10–16; TEMP 35.6–37.1; O2SAT 93–100; BMI 40.9
[2022-08-12] MEDS: LACTATED RINGERS 1,000 ML 125 ML IV CONT ×2 (11:30→14:40)
--- NOTE | 2022-08-12 12:04 | PM.IMHP ---
H&P: HPI History of Present Illness Date/Time: 08/12/22 12:04 Chief Complaint: repeat CS and salpingectomy Narrative: issac is a 42yo at 39.0 for repeat CS and bilateral salpingectomy for sterilization. complicated by AMA, GDMA1, marginal cord insertion, and Rh neg. Review of Systems Review of Systems: All systems reviewed & are unremarkable except as noted in HPI and below PMFSH Past Medical History Medical History (Updated 08/12/22 @ 12:08 by Esperanza Quinones MD) GDM (gestational diabetes mellitus) PIH ( induced hypertension) Family History Family History Other No pertinent family history Social History Social History Smoking status: Never smoker Substance use: never Gender identity (if verbalized by the patient): Female Spiritual care concerns: No Meds Home Medications and Allergies Home Medications Medication Instructions Recorded Confirmed Type aspirin 81 mg chewable tablet 81 mg PO DAILY 07/27/22 07/27/22 History prenat.vits,erik,dxp-plqr-kvvgl 1 tablet PO DAILY 07/27/22 07/27/22 History Allergies Allergy/AdvReac Type Severity Reaction Status Date / Time amoxicillin Allergy Intermediate Rash Verified 11/04/21 14:54 Penicillins Allergy Unknown Skin Verified 11/04/21 14:54 Reaction Vital Signs Vital Signs - 24 hr 08/12/22 10:37 08/12/22 10:46 Pulse Rate 53 L 60 Blood Pressure 139/80 144/68 H Exam Const: General: no acute distress Resp: Effort & Inspection: normal respiratory effort Auscultation: clear to auscultation bilaterally Cardio: Rate: regular rate Rhythm: regular rhythm GI: GI Palp: Yes Soft to palpation Extrem: General: normal to inspection Assessment and Plan Assessment and plan (1) History of delivery: Code(s): Z98.891 - History of uterine scar from previous surgery Status: Acute (2) Request for sterilization: Code(s): Z30.2 - Encounter for sterilization Status: Acute (3) GDM (gestational diabetes mellitus): Code(s): O24.419 - Gestational diabetes mellitus in , unspecified control Status: Acute Plan consented for R CS and bilateral salpingectomy. discussed RBA and questions answered. will proceed. GDMA1 well controlled. FHT category 1
--- NOTE | 2022-08-12 12:09 | WPDHPUPDATE1 ---
History and Physical Update Update Date/Time: 08/12/22 12:09 History and Physical has been reviewed, including an updated exam of the patient. There are NO changes in the patient's condition. Risks, benefits, and alternatives have been discussed and questions answered. Patient agrees to proceed with procedure.
--- NOTE | 2022-08-12 12:27 | P.PNAN_ITS ---
Anes - Initial Pre Proc Eval Procedure: Operation Date: 08/12/22 12:00 Proposed Procedures p Repeat Section with Bilateral Salpingectomy - Esperanza Quinones MD Date/Time: 08/12/22 12:27 Surgeon: Esperanza Quinones MD Pre Op Diagnosis: C/S Patient Data Age: 42 Gender: F Height: 1.68 m Weight: 115 kg Last Vital Signs Pulse 60 08/12/22 10:46 BP 144/68 H 08/12/22 10:46 O2 Del Method Room Air 08/12/22 12:00 Allergies Allergy/AdvReac Type Severity Reaction Status Date / Time amoxicillin Allergy Intermediate Rash Verified 11/04/21 14:54 Penicillins Allergy Unknown Skin Verified 11/04/21 14:54 Reaction Home Medications Medication Instructions Recorded Confirmed Type aspirin 81 mg chewable tablet 81 mg PO DAILY 07/27/22 07/27/22 History prenat.vits,erik,fii-svwk-pddot 1 tablet PO DAILY 07/27/22 07/27/22 History Patient hx anesthesia problems: none Family hx anesthesia problems: none Results Review: All pre-operative results and documents have been reviewed as part of the pre- operative evaluation. [facility] Past Medical History Medical History (Updated 08/12/22 @ 12:08 by Esperanza Quinones MD) GDM (gestational diabetes mellitus) PIH ( induced hypertension) Family History Family History Other No pertinent family history Social History Social History Smoking status: Never smoker Substance use: never Gender identity (if verbalized by the patient): Female Spiritual care concerns: No Anes - Eval Final PreProcedure Day of Procedure 08/12/22 12:27 Patient weight: morbidly obese Heart: regular rate and rhythm Lungs: clear to auscultation and normal air movement Airway: Mallampati scale class II Neurological: alert and oriented Last oral intake: >/= 8 hours ASA classification: III Emergent: no Anesthetic plan: proceed Anesthesia type and monitoring: regional spinal and standard monitoring Results Review: All pre-operative results and documents have been reviewed as part of the pre- operative evaluation. Informed Consent: The patient's anesthetic plan and its attendant risks and benefits were discussed with the patient/family/POA. Questions were solicited and answers provided to the satisfaction of the patient/family/POA.
[2022-08-12] MEDS: ceFAZolin 2 GM/D5W 50 ML 2 GM/50 ML BAG IVPB (12:38)
--- NOTE | 2022-08-12 14:39 | PM.OBPRVD ---
OB - Delivery Note Procedure Delivery date: 08/12/22 Procedure: Procedures Operation Date: 08/12/22 12:00 <No data on this case meets the specified criteria> repeat low transverse section and bilateral salpingectomy Events: Gestational Diabetes and Previous Delivery Route of delivery: Specimen: Yes (placenta) Quantitative Blood Loss (ml): 570 Anesthesia type: Spinal Disposition: Floor Complications: none Narrative: Preop Dx: prior CS, GDMA1, undesired future fertility Postop Dx: same The patient was taken to the OR and received spinal anesthesia. She was placed in dorsal supine position with left lateral tilt. SCDs and avery were placed. She was prepped and draped in the normal sterile fashion. A Pfannensteil skin incision was made and carried through to the underlying layer of fascia. The fascia was incised in the midline and then extended laterally using Valencia scissors. The muscles were in the midline and the peritoneum was entered bluntly. The peritoneal incision was extended inferiorly and superiorly with care to avoid the bladder. The bladder blade was then inserted, the vesicouterine peritoneum was grasped, incised with Metzenbaum scissors, and a bladder flap created. The bladder blade was reinserted. A low transverse uterine incision was made with a scalpel and extended bluntly. AROM was performed and fluid was noted to be clear. The head was delivered, followed by the remainder of the baby. The baby's oropharynx was suctioned. After 30 seconds, the cord was clamped and cut and the infant was handed off. Cord blood was obtained and the placenta was then removed manually. The uterus was exteriorized. A moist lap sponge was used to curette the endometrium. The uterine incision was then closed with two layers of 0-Vicryl in a running, locking fashion. Several figure of eight sutures were placed for hemostasis but still there were several areas of bleeding that were not heavy, but were not hemostatic. Hemaderm and pressure were applied and the bleeding improved. I then turned attention to the tubes. Using the Ligasure, the right tube was removed by sequentially clamping, cauterizing, and cutting the tube free from the cornua and the broad ligament. The right tube was adherent to the right ovary in a curled up position with the fimbriae up towards the cornua. Similarly, the left tube was removed, though it had no adhesions. The posterior cul de sac was irrigated with normal saline and cleared of all clot and debris. The uterus was returned to the abdomen. Both lateral gutters were then irrigated. There was some light bleeding noted again from the hysterotomy site, and Floseal and more Hemaderm was placed with hemostasis then noted. The rectus muscles were inspected and found to be hemostatic. The fascia was reapproximated using 0-Vicryl in running fashion. The subcutaneous tissue was irrigated with normal saline and made hemostatic with Bovie electrocautery. The skin was then closed with reabsorbable shankar. Steri strips and a bandage were applied. The uterus was evacuated. The patient tolerated the procedure very well. All counts were correct. She was taken to the recovery room in good condition. [place] Baby Date of : 08/12/22 Time of : 13:06 Weeks of gestation at delivery: 39 gender: Male Weight (pounds): 7 Weight (ounces): 0 presentation: vertex Placenta delivery description: Manual Removal Cord Vessel Description: 3 Vessels and Delayed Cord Clamping score one minute: 8 score five minutes: 9
[2022-08-12] MEDS: MORPHINE SULFATE INJ (*CRX) 10 MG/ML AMP 3 MG IV PUSH ×2 (15:30→16:52)
[2022-08-12] MEDS: OXYTOCIN 30 UNITS/NS 500 ML 30 UNITS/500 ML BAG 125 UNITS IV CONT (15:45)
--- NOTE | 2022-08-12 16:50 | OBPPTRN ---
Patient transferred to post room #284 via stretcher. Support person present. Oriented to unit, room, information board, rooming in, admission packet and security measures. Patient verbalizes understanding. Infant with patient.
[2022-08-12] MEDS: diphenhydrAMINE HCl INJ 50 MG/ML VIAL 25 MG IV PUSH (17:03)
[2022-08-12] MEDS: ONDANSETRON INJ 4 MG/2 ML VIAL IV PUSH (18:29)
[2022-08-12] MEDS: METOCLOPRAMIDE HCL INJ 10 MG/2 ML VIAL 5 MG IV PUSH (19:26)
[2022-08-12] MEDS: FAMOTIDINE 20 MG/2 ML VIAL IV PUSH (19:28)
[2022-08-13 00:30] VITALS: BP 137/68; PULSE 64; RESP 16; TEMP 36.6; O2SAT 97
[2022-08-13] MEDS: KETOROLAC 30 MG/ML VIAL (*BKC) IV PUSH (00:35)
[2022-08-13 04:35] VITALS: BP 139/72; PULSE 60; RESP 16; TEMP 36.8; O2SAT 98
[2022-08-13] MEDS: HYDROcodone/acetaminophen (*CRX) 5-325 MG TABLET 1 TAB PO (04:52)
[2022-08-13 05:26] LABS: Basophils Percent Auto 0.3 % (0.2-1.2); Eosinophils Percent Auto 0.2 % (0-4.4); Hematocrit 34.6 % (37.0-47.0); Hemoglobin 11.1 g/dL (12.0-15.0); Immature Granulocyte Absolute 0.06 K/mm3 (0.00-0.031); Immature Granulocyte Percent A 0.5 % (0-0.5); Lymphocytes Absolute Auto 1.44 K/mm3 (0.9-3.2); Lymphocytes Percent Auto 12.3 % (18.3-44.2); Mean Corpuscular HGB Conc 32.1 g/dl (32-36); Mean Corpuscular Hemoglobin 27.5 pg (26-34); Mean Corpuscular Volume 85.9 fl (80-100); Monocytes Absolute Auto 0.6 K/mm3 (0.1-0.6); Monocytes Percent Auto 5.4 % (2.6-8.5); Neutrophils Absolute Auto 9.5 K/mm3 (1.3-6.7); Neutrophils Percent Auto 81.3 % (45.5-73.1); Platelet Count Result 159 k/mm3 (150-375); Red Blood Count 4.03 M/mm3 (4.2-5.4); Red Cell Distribution Width 15.8 % (11.5-14.5); White Blood Count 11.7 K/mm3 (4.5-10.0)
[2022-08-13 07:30] VITALS: BP 131/77; PULSE 71; RESP 16; TEMP 37; O2SAT 98
--- NOTE | 2022-08-13 07:33 | WPDANLDPN2 ---
Anes-Prog Note L&D Date/Time: 08/13/22 07:33 Comfortable throughout: section Neuraxial method: spinal Epidural/Spinal procedure site: clean & non-tender Neuro status: Neuro function grossly intact. Cardiovascular status: normal Respiratory status: normal Airway patency: baseline Mental status: baseline Post-Op hydration status: normal Vital Signs: Last Vital Signs Temp 36.8 C 08/13/22 04:35 Pulse 60 08/13/22 04:35 Resp 16 08/13/22 04:35 BP 139/72 08/13/22 04:35 Pulse Ox 98 08/13/22 04:35 O2 Del Method Room Air 08/12/22 21:20 Pain score (VAS): 2/10 I/O: Intake & Output 08/12/22 08/12/22 08/13/22 15:59 23:59 07:59 Intake Total 1100 Output Total 720 300 700 Balance 380 -300 -700 Post-procedural complaints: nausea moderate, treatment effective Patient feedback: Patient satisfied with anesthetic care.
--- NOTE | 2022-08-13 07:33 | WPDANLDNPN2 ---
Anes-Prog Note L&D-Neuraxial Date/Time: 08/13/22 07:33 Neuraxial medications: intrathecal PF morphine Opiod-related complaints: nausea moderate, treatment effective Patient feedback: Patient satisfied with post-operative pain management.
[2022-08-13 08:00] VITALS: PULSE 71; RESP 16; O2SAT 98
--- NOTE | 2022-08-13 08:10 | P.PNOB_ITS ---
OB - PN: Subj Subjective Date/time seen: 08/13/22 08:10 Patient comments: no complaints, pain well controlled, tolerating diet and flatus present OB - PN: Obj Data Labs 08/13/22 05:09 Labs: Laboratory Results - last 24 hr 08/13/22 05:09 WBC 11.7 H RBC 4.03 L Hgb 11.1 L Hct 34.6 L MCV 85.9 MCH 27.5 MCHC 32.1 RDW 15.8 H Plt Count 159 MPV 12.0 H Immature Gran % (Auto) 0.5 Neut % (Auto) 81.3 H Lymph % (Auto) 12.3 L [place] % (Auto) 5.4 Eos % (Auto) 0.2 Baso % (Auto) 0.3 Lymph # (Auto) 1.44 [place] # (Auto) 0.6 Eos # (Auto) 0.0 Baso # (Auto) 0.0 Abs Immat Gran (auto) 0.06 H Absolute Neuts (auto) 9.5 H Absolute Nucleated RBC 0.0 Nucleated RBC % 0.0 Blood Type O Negative Antibody Screen Negative Screen Negative Baby's Blood Type O pos Baby's ABDIAZIZ Negative Doses of RhIg Required 1 OB - PN A/P Plan day: 1 Comments: Post Op LTCS - no problems, routine recovery Time Spent With Patient Time: Total time spent is greater than 50% in coordination of care (as documented) at patient's floor/unit and/or counseling patient: Exam Const: General: cooperative, healthy appearing, comfortable and no acute distress Resp: Auscultation: no crackles, no rales, no rhonchi and no wheezes Cardio: Rhythm: regular rhythm Heart sounds: no click and no murmurs GI: Inspection: non-distended Auscultation: normal bowel sounds Extrem: General: normal to inspection, no pedal edema and no calf tenderness
[2022-08-13] MEDS: SIMETHICONE 80 MG TAB.CHEW PO ×3 (09:38→22:13)
[2022-08-13] MEDS: DOCUSATE SODIUM 100 MG CAPSULE PO ×2 (09:39→16:01)
[2022-08-13] MEDS: HYDROcodone/acetaminophen (*CRX) 10-325 MG TABLET 1 TAB PO ×4 (09:39→22:12)
[2022-08-13] MEDS: IBUPROFEN 600 MG TABLET PO ×3 (09:40→22:10)
[2022-08-13] MEDS: RHO(D) IMMUNE GLOBULIN 300 MCG/2 ML SYRINGE IM (10:49)
[2022-08-13 11:19] VITALS: BP 122/80; PULSE 70; RESP 14; TEMP 36.9; O2SAT 99
[2022-08-13 20:05] VITALS: BP 137/71; RESP 18; TEMP 36.7
[2022-08-14] MEDS: SIMETHICONE 80 MG TAB.CHEW PO ×4 (01:11→11:43)
[2022-08-14] MEDS: HYDROcodone/acetaminophen (*CRX) 10-325 MG TABLET 1 TAB PO ×3 (01:11→08:15)
[2022-08-14] MEDS: IBUPROFEN 600 MG TABLET PO ×3 (04:15→17:48)
--- NOTE | 2022-08-14 07:54 | P.PNOB_ITS ---
OB - PN: Subj Subjective Date/time seen: 08/14/22 07:54 Patient comments: incisional pain and flatus present [place] baby status: doing well and bottle feeding well [place] feeding status: exclusively bottle feeding Narrative: Pain not great and just not feeling well this morning. Tolerating PO. OB - PN: Obj Data Labs 08/13/22 05:09 Labs: Laboratory Results - last 24 hr 08/13/22 05:09 Blood Type O Negative Antibody Screen Negative Screen Negative Baby's Blood Type O pos Baby's ABDIAZIZ Negative Doses of RhIg Required 1 OB - PN A/P Plan day: 2 Plan: routine care Comments: Wants to stay another night or two. routine post op care. Time Spent With Patient Time: Total time spent is greater than 50% in coordination of care (as documented) at patient's floor/unit and/or counseling patient: Exam Narrative: NAD abdomen soft, appropriately tender, incision CDI Extremities nontender with 1+ edema
[2022-08-14 08:00] VITALS: PULSE 64; RESP 16; O2SAT 100
[2022-08-14] MEDS: DOCUSATE SODIUM 100 MG CAPSULE PO ×2 (08:14→14:58)
[2022-08-14 08:25] VITALS: BP 150/77; PULSE 64; RESP 16; TEMP 36.8; O2SAT 100
[2022-08-14] MEDS: HYDROcodone/acetaminophen (*CRX) 5-325 MG TABLET 1 TAB PO ×4 (11:44→21:06)
[2022-08-14 12:20] VITALS: BP 160/89; PULSE 65
[2022-08-14 14:06] LABS: Hematocrit 33.5 % (37.0-47.0); Mean Corpuscular HGB Conc 32.8 g/dl (32-36); Mean Corpuscular Hemoglobin 27.9 pg (26-34); Mean Platelet Volume 11.2 fl (7.4-10.4); Platelet Count Result 171 k/mm3 (150-375); Red Blood Count 3.94 M/mm3 (4.2-5.4); Red Cell Distribution Width 15.9 % (11.5-14.5); White Blood Count 10.5 K/mm3 (4.5-10.0)
[2022-08-14 14:17] LABS: Alanine Aminotransferase 18 U/L (6-35); Albumin Level 2.8 g/dL (3.5-5.1); Alkaline Phosphatase 128 U/L (38-126); Anion Gap 3 mmol/L (8-16); Aspartate Amino Transferase 21 U/L (14-36); Bilirubin,Total 0.3 mg/dL (0.2-1.3); Blood Urea Nitrogen 7 mg/dL (7-17); Carbon Dioxide 25 mmol/L (22-30); Chloride 106 mmol/L (98-107); Estimated CRCL calculation 161 ml/min; Estimated Glomerular Filt Rate > 60; Glucose 128 mg/dL (65-110); Potassium 3.4 mmol/L (3.4-5.0); Sodium 134 mmol/L (137-145); Uric Acid 4.5 mg/dL (2.5-7.5)
[2022-08-14 14:35] VITALS: BP 158/84; PULSE 68
[2022-08-14 21:12] VITALS: BP 155/81; PULSE 66; RESP 18; O2SAT 99
[2022-08-15] MEDS: HYDROcodone/acetaminophen (*CRX) 5-325 MG TABLET 1 TAB PO ×5 (00:01→13:03)
[2022-08-15] MEDS: IBUPROFEN 600 MG TABLET PO ×3 (00:03→13:03)
[2022-08-15 00:10] VITALS: BP 152/81; PULSE 71
[2022-08-15 03:35] VITALS: BP 144/81; PULSE 63; TEMP 35.7
[2022-08-15] MEDS: SIMETHICONE 80 MG TAB.CHEW PO ×2 (07:06→13:04)
[2022-08-15 07:07] VITALS: BP 144/84; PULSE 79; RESP 14; TEMP 36.7; O2SAT 100
[2022-08-15] MEDS: DOCUSATE SODIUM 100 MG CAPSULE PO (07:07)
[2022-08-15] MEDS: MULTIVIT/MIN/PREN/FOL AC/IRON TABLET 1 TAB PO (07:07)
--- NOTE | 2022-08-15 08:12 | PM.OBPNVD ---
OB - PN: Subj Subjective Date/time seen: 08/15/22 08:12 Patient comments: no complaints, pain well controlled, incisional pain, tolerating diet and flatus present OB - PN: Obj Data Labs 08/14/22 13:59 08/14/22 13:59 Labs: Laboratory Results - last 24 hr 08/14/22 13:59 WBC 10.5 H RBC 3.94 L Hgb 11.0 L Hct 33.5 L MCV 85.0 MCH 27.9 MCHC 32.8 RDW 15.9 H Plt Count 171 MPV 11.2 H Sodium 134 L Potassium 3.4 Chloride 106 Carbon Dioxide 25 Anion Gap 3 L BUN 7 D Creatinine 0.50 L Estim Creat Clear Calc 161 Estimated GFR > 60 Glucose 128 H Uric Acid 4.5 Calcium 8.0 L Total Bilirubin 0.3 AST 21 ALT 18 Alkaline Phosphatase 128 H Total Protein 6.0 L Albumin 2.8 L OB - PN A/P Plan day: 2 Plan: routine care Comments: POD#2 LTCS - no problems, Time Spent With Patient Time: Total time spent is greater than 50% in coordination of care (as documented) at patient's floor/unit and/or counseling patient: Exam Const: General: comfortable, no acute distress and alert Resp: Effort & Inspection: normal respiratory effort Auscultation: no crackles, no rales and no rhonchi Cardio: Rate: regular rate Heart sounds: no click, no murmurs and no rubs GI: Inspection: non-distended GI Palp: No Tenderness to palpation present (GI) Auscultation: normal bowel sounds Other: Incision - CDI Extrem: General: normal to inspection, no pedal edema and no calf tenderness
--- NOTE | 2022-08-15 08:12 | PM.OBDSVD ---
DS: Admitting Diagnosis Discharge Date 08/15/22 Admitting Diagnosis term OB - DS: Summary OB Procedures : None OB Procedures Intrapartum: OB Procedures: : None Peripartum Data Procedures: Procedures Operation Date: 08/12/22 12:00 Actual Procedure Side Surgeon p Repeat Section with Bilateral Salpingectomy Not Applicable Esperanza Quinones MD Time Spent with Patient Time attestation: Total time spent providing and/or coordinating discharge services: DS: Data Data Completed and Pending Completed studies during hospitalization: Pending at discharge 08/12/22 15:05 Surgical [PTH] Routine Labs on day of discharge: Labs from last 24 hours 08/14/22 13:59 WBC 10.5 H RBC 3.94 L Hgb 11.0 L Hct 33.5 L MCV 85.0 MCH 27.9 MCHC 32.8 RDW 15.9 H Plt Count 171 MPV 11.2 H Sodium 134 L Potassium 3.4 Chloride 106 Carbon Dioxide 25 Anion Gap 3 L BUN 7 D Creatinine 0.50 L Estim Creat Clear Calc 161 Estimated GFR > 60 Glucose 128 H Uric Acid 4.5 Calcium 8.0 L Total Bilirubin 0.3 AST 21 ALT 18 Alkaline Phosphatase 128 H Total Protein 6.0 L Albumin 2.8 L Discharge Plan Discharge Discharging Clinician: Kush Hickey Patient Disposition: Home, Self-Care Activity: pelvic rest Diet: regular Patient Instructions: Antibiotic Form Stand Alone Forms: General Discharge Information Follow-up/Referrals: Kush Hickey MD [Physician] - Discharge Medications: New hydrocodone-acetaminophen 5-325 mg tablet 1 - 2 tablet PO Q6H PRN (Reason: pain) Qty: 25 0RF Continued aspirin [[place] Low-Dose Aspirin] 81 mg Tablet,Chewable 81 mg PO DAILY #2 Tablet 1 tablet PO DAILY Date of admission: 08/12/22 09:56 Primary Care Provider: Augusta Mayberry Admitting Provider: Esperanza Quinones Attending physician on admission: Esperanza Quinones Condition: Stable
--- NOTE | 2022-09-07 12:35 | PM.OBTRLD ---
OB - Triage/Final Diagnosis Visit Information Comments/Additional reasons for admission: I have assessed the risk for this patient, Laureen Medellin, and determined that she would benefit from observation care. Evaluation Laboratory results: Laboratory Tests 08/13/22 08/14/22 05:09 13:59 WBC 11.7 H 10.5 H RBC 4.03 L 3.94 L Hgb 11.1 L 11.0 L Hct 34.6 L 33.5 L MCV 85.9 85.0 MCH 27.5 27.9 MCHC 32.1 32.8 RDW 15.8 H 15.9 H Plt Count 159 171 MPV 12.0 H 11.2 H Immature Gran % (Auto) 0.5 Neut % (Auto) 81.3 H Lymph % (Auto) 12.3 L [place] % (Auto) 5.4 Eos % (Auto) 0.2 Baso % (Auto) 0.3 Lymph # (Auto) 1.44 [place] # (Auto) 0.6 Eos # (Auto) 0.0 Baso # (Auto) 0.0 Abs Immat Gran (auto) 0.06 H Absolute Neuts (auto) 9.5 H Absolute Nucleated RBC 0.0 Nucleated RBC % 0.0 Sodium 134 L Potassium 3.4 Chloride 106 Carbon Dioxide 25 Anion Gap 3 L BUN 7 D Creatinine 0.50 L Estim Creat Clear Calc 161 Estimated GFR > 60 Glucose 128 H Uric Acid 4.5 Calcium 8.0 L Total Bilirubin 0.3 AST 21 ALT 18 Alkaline Phosphatase 128 H Total Protein 6.0 L Albumin 2.8 L Blood Type O Negative Antibody Screen Negative Screen Negative Baby's Blood Type O pos Baby's ABDIAZIZ Negative Doses of RhIg Required 1 Final Diagnosis (1) Term delivered: Code(s): O80 - Encounter for full-term uncomplicated delivery Status: Acute
== END 2022-08-15 14:10 | disposition home or self-care (01) | DRG 785 ==
LOC: ANHOB2 08-15 12:31 → ANHLDR 08-17 13:34 → ANHOB2 08-17 13:34 → ANHOBPP 08-17 13:34
PROVIDERS: Admitting Provider Obstetrics & Gynecology; PCP Family Medicine; Visit Provider Obstetrics & Gynecology
PROC: 10D00Z1 Extraction of Products of Conception, Low, Open Approach (ICD-10-PCS; CPT 59514; principal; 2022-08-12 12:00)
DX: O34.219 Maternal care for unspecified type scar from previous cesarean delivery (principal); Z30.2 Encounter for sterilization; O43.123 Velamentous insertion of umbilical cord, third trimester; O24.429 Gestational diabetes mellitus in childbirth, unspecified control; O13.4 Gestational [pregnancy-induced] hypertension without significant proteinuria, complicating childbirth; Z3A.39 39 weeks gestation of pregnancy; Z37.0 Single live birth; Z88.0 Allergy status to penicillin; Z67.91 Unspecified blood type, Rh negative
CPT/HCPCS: 36415; 80053; 84550; 85025; 85027; 85461; 86592; 86850; 86900; 86901; 88302; 90384; A9270; J0131; J0690; J1100; J1200; J1885; J2250; J2270; J2274; J2370; J2405; J2590; J2765; J2790; J7120

== ENCOUNTER 2022-09-29 18:26 | Emergency (ER) | payer OTHER, SELFPAY ==
[2022-09-29 18:30] VITALS: BP 143/83; PULSE 71; RESP 18; TEMP 35.9; O2SAT 100
--- NOTE | 2022-09-29 18:32 | ED.NAVMDI ---
HPI - Nausea/Vomiting/Diarrhea General Chief complaint: Nausea/Vomiting/Diarrhea Stated complaint: light headed, dizzy, nauseous, vomitting Time Seen by Provider: 09/29/22 18:32 Source: patient and RN notes reviewed History of Present Illness HPI Narrative: Patient is a 42-year-old female presents to urgent care with complaints of lightheadedness, dizziness, nausea. Patient states that his air about 315 this afternoon and she took a 1 hour nap waking up feeling about the same. Patient denies any abdominal pain, fever, recent illness. Patient states she did have some high blood pressure issues after her . States that she had a approximately 7 weeks ago. Denies any urinary issues. Denies any blood sugar issues. Patient states that she does believe she has a decrease fluid intake but has not had issues in the past with dehydration. Patient states she has had a tubal and no chance of . No other acute complaints. Patient and spouse aware of the plan of care. Some parts of this dictation were generated by voice recognition software and may contain typographical and/or grammatical inaccuracies. Related Data Home Medications Medication Instructions Recorded Confirmed prenat.vits,erik,tdm-bzcm-feely 1 tablet PO DAILY 07/27/22 09/29/22 Allergies Allergy/AdvReac Type Severity Reaction Status Date / Time amoxicillin Allergy Intermediate Rash Verified 11/04/21 14:54 Penicillins Allergy Unknown Skin Verified 11/04/21 14:54 Reaction Review of Systems Review of Systems: CONSTITUTIONAL: Denies fever, chills, or sweats. EYES: Denies visual changes, redness, or discharge. ENT: Denies rhinorrhea, congestion, sore throat, or otalgia. CARDIOVASCULAR: Denies chest pain, palpitations, or edema. RESPIRATORY: Denies cough or dyspnea. GASTROINTESTINAL: Reports of nausea without abdominal pain GENITOURINARY: Denies dysuria or hematuria. SKIN: Denies rash or itching. MUSCULOSKELETAL: Denies back pain, joint pain, or myalgia. NEUROLOGIC: Reports dizziness and lightheadedness All other systems reviewed are negative, except as documented in HPI. [facility] Past Medical History Medical History (Updated 09/29/22 @ 19:22 by GAUILA Ayala) GDM (gestational diabetes mellitus) PIH ( induced hypertension) Surgical History Surgical History (Updated 08/18/22 @ 17:01 by Augusta Mayberry MD) H/O bilateral salpingectomy 4.27.23 Family History Family History Other No pertinent family history Social History Social History Smoking status: Never smoker Substance use: never Lack of Transportation: No Lack of Food: Never True Current Housing: I Have Housing Concerned About Future Housing: No Difficulty Paying Gas/Electric Bills: No Difficulty Paying for Meds: No Currently Unemployed: No Education: Bachelor's Degree Difficulty w/ Childcare or Family Care: No Gender identity (if verbalized by the patient): Female Spiritual care concerns: No Comments At the time of my signature, I reviewed and agree with the nursing past medical, surgical, social, and family history. There is no relevant family history pertinent to the patient complaint. Exam Narrative: GENERAL: This is a well-nourished, well-developed patient, in no apparent distress. HEAD: normocephalic, atraumatic. EYES: PERRL. Sclera clear/white. Vision is grossly intact. EARS: External ears normal, auditory canals clear and without drainage, TMs normal without perforation. Hearing grossly intact. NOSE: External nose normal with no obvious nasal discharge, nares without redness, no rhinorrhea. THROAT: Mucous membranes moist, posterior pharynx clear. NECK: Neck supple, non-tender without lymphadenopathy, masses or thyromegaly. CARDIOVASCULAR: Regular rate and rhythm without murmurs, gallop
[2022-09-29 18:35] VITALS: BP 143/83; PULSE 71; RESP 18; TEMP 35.9; O2SAT 100
[2022-09-29 19:04] LABS: Glucose Point of Care 134 mg/dl (65-105)
== END 2022-09-29 19:27 | disposition left against medical advice (07) ==
PROVIDERS: Emergency Provider Nurse Practitioner Family; PCP Family Medicine
DX: R42 Dizziness and giddiness (principal); R11.2 Nausea with vomiting, unspecified
CPT/HCPCS: 81003; 82948; 99213; G0463

== ENCOUNTER 2022-10-15 10:50 | Outpatient (CLI) | payer OTHER, SELFPAY ==
[2022-10-15 20:05] LABS: Kit Draw Collected
== END 2022-10-15 10:51 | disposition home or self-care (01) ==
LOC: ANHGOSHLAB 10:52
PROVIDERS: PCP Family Medicine; Visit Provider Family Medicine
DX: R73.03 Prediabetes (principal); D64.9 Anemia, unspecified
CPT/HCPCS: 36415

== ENCOUNTER 2022-12-01 14:45 | Outpatient (RCR) | payer OTHER, SELFPAY ==
[2022-10-28 14:45] VITALS: BMI 37.5
[2022-10-28 16:10] VITALS: BMI 37.5
[2022-12-01 15:58] VITALS: BMI 37.5
== END 2023-01-25 12:53 | disposition home or self-care (01) ==
LOC: ANHDMC 14:45
PROVIDERS: PCP Family Medicine; Visit Provider Family Medicine
DX: O24.419 Gestational diabetes mellitus in pregnancy, unspecified control (principal); Z3A.00 Weeks of gestation of pregnancy not specified; Z71.3 Dietary counseling and surveillance
CPT/HCPCS: 97802; 97803

== ENCOUNTER 2023-08-18 15:55 | Outpatient (CLI) | payer OTHER, SELFPAY ==
[2023-08-18 19:34] LABS: Alanine Aminotransferase 29 U/L (6-35); Albumin Level 3.7 g/dL (3.5-5.1); Alkaline Phosphatase 110 U/L (38-126); Anion Gap 4 mmol/L (4-12); Aspartate Amino Transferase 36 U/L (14-36); Bilirubin,Total 0.3 mg/dL (0.2-1.3); Blood Urea Nitrogen 13 mg/dL (7-17); Calcium 9.2 mg/dL (8.4-10.2); Carbon Dioxide 28 mmol/L (22-30); Chloride 108 mmol/L (98-107); Cholesterol 217 mg/dL (0-200); Estimated Glomerular Filt Rate > 60; Glucose 135 mg/dL (65-110); HDL Direct 33 mg/dL; Potassium 3.9 mmol/L (3.4-5.0); Sodium 140 mmol/L (137-145); Triglycerides 260 mg/dL (<150)
[2023-08-18 19:44] LABS: LDL Cholesterol Direct 134 mg/dL
[2023-08-18 20:08] LABS: Creatinine Urine 170.7 mg/dL
[2023-08-18 20:20] LABS: MALB Creatinine Ratio < 3.5 mg/g (0-30); Microalbumin Urine Random < 6.0 mg/L (0-16.7)
[2023-08-18 20:26] LABS: Hemoglobin A1C 5.8 % (<5.7)
== END 2023-08-18 15:56 | disposition home or self-care (01) ==
LOC: ANHGOSHLAB 15:57
PROVIDERS: PCP Family Medicine; Visit Provider Family Medicine
DX: E66.01 Morbid (severe) obesity due to excess calories (principal); R73.03 Prediabetes; Z68.35 Body mass index [BMI] 35.0-35.9, adult
CPT/HCPCS: 36415; 80053; 80061; 82043; 82607; 83036; 84443

== ENCOUNTER 2024-09-07 07:49 | Outpatient (CLI) | payer OTHER, SELFPAY ==
--- NOTE | ~2024-09-07 | MM_ITS ---
EXAMINATION: MM screening iain BI [facility] HISTORY: Screening TECHNIQUE: Craniocaudal and mediolateral oblique 3-D tomosynthesis images were obtained and synthetic 2-D images were generated. CAD analysis was submitted and interpreted. COMPARISON: No prior mammogram is available for comparison at this institution. BREAST PARENCHYMAL COMPOSITION: Not dense: There are scattered areas of fibroglandular density. FINDINGS: There is no evidence of suspicious mass, calcification, or architectural distortion to sugg est malignancy in either breast. There has been no suspicious interval change. IMPRESSION: 1. No mammographic evidence of malignancy. 2. Recommend routine screening mammography in one year. BI-RADS Category 1: Negative Reviewed, dictated and finalized at location []
== END 2024-09-07 07:50 | disposition home or self-care (01) ==
LOC: CHSIMG 07:50
PROVIDERS: PCP Family Medicine; Visit Provider Family Medicine
DX: Z12.31 Encounter for screening mammogram for malignant neoplasm of breast (principal)
CPT/HCPCS: 77063; 77067